=== PATIENT | female | born 1940 | race Caucasian/White ===

== ENCOUNTER 2017-07-15 21:49 | Inpatient (IN) | payer OTHER, BC ==
[~2017-07-15] VITALS: Ht 157.5 cm; Wt 83.8 kg
[~2017-07-15 21:49] MED LIST: ARTHROTEC 751 TABLET PO; ASPIRIN81 M2 PO; BENADRYL25 MG PO; CIPRO250 MG PO; CIPRO500 MG PO; FEOSOL325 MG PO; IRON325 M1 PO; LIPITOR20 MG PO; OXYCODONE HCL5 MG PO; PAXIL30 MG PO; SENNA-TIME S T1 EACH PO; TYLENOL REGULA325 MG PO; ULTRAM50 MG PO; VALIUM2 MG PO; VITAMIN C1000 MG PO; WELLBUTRIN75 MG PO; XARELTO10 MG PO
[2017-07-16 05:51] VITALS: BP 174/76
[2017-07-16 11:16] VITALS: BP 139/76
[2017-07-16 15:47] VITALS: BP 160/74
[2017-07-16 19:52] VITALS: BP 133/66
[2017-07-17 00:26] VITALS: BP 129/60
[2017-07-17 04:16] VITALS: BP 111/49
[2017-07-17 08:12] VITALS: BP 120/59
[2017-07-17 12:06] VITALS: BP 139/65
[2017-07-17 16:17] VITALS: BP 144/65
[2017-07-17 17:16] LABS: ANION GAP 9 MEQ/L (2-14); CHLORIDE 104 MEQ/L (99-109); POTASSIUM 3.8 MEQ/L (3.7-5.4); SAMPLE HEMOLYSIS CHECK 0; SAMPLE ICTERIC CHECK 0; SAMPLE LIPEMIA CHECK 0; SODIUM 139 MEQ/L (136-147)
[2017-07-17 17:21] LABS: GFR ESTIMATE (CALCULATED) > 59 mL/min/; GLUCOSE 103 mg/dL (70-99); UREA NITROGEN (BUN) 11 mg/dL (9-23)
[2017-07-17 18:43] VITALS: BP 139/70
[2017-07-18] VITALS (10 sets, daily range): BP systolic 84–127; BP diastolic 42–72
[2017-07-18 05:18] LABS: EOSINOPHIL COUNT 0.1 K/uL (0-0.3); IMMATURE GRANULOCYTE (%) 0.5 % (0.0-0.7); INSTRUMENT ABS NEUTROPHIL CT 5.2 K/uL; LYMPHOCYTE COUNT 0.9 K/uL (1.0-2.8); MCH 31.6 PG (29.0-34.0); MCHC 33.9 G/DL (30.0-36.0); MCV 93.2 FL (83-99); MEAN PLAT.VOLUME 8.4 uM^3 (9.5-12.4); MONOCYTE (%) 5.5 % (3-12); MONOCYTE COUNT 0.4 K/uL (0-0.8); NEUTROPHIL (%) 78.8 % (45-76); NEUTROPHIL COUNT 5.2 K/uL (1.8-6.4); PLATELET COUNT 171 K/uL (156-360); RBC DIS.WIDTH-CV 12.4 % (11.8-14.6); RBC DIS.WIDTH-SD 42.8 % (39-53); RED BLOOD COUNT 3.54 M/uL (3.80-5.20); WHITE BLOOD COUNT 6.6 K/uL (4.1-10.2)
[2017-07-18 05:43] LABS: ANION GAP 10 MEQ/L (2-14); CHLORIDE 104 MEQ/L (99-109); GFR ESTIMATE (CALCULATED) > 59 mL/min/; GLUCOSE 113 mg/dL (70-99); POTASSIUM 3.6 MEQ/L (3.7-5.4); SAMPLE HEMOLYSIS CHECK 0; SAMPLE ICTERIC CHECK 0; SAMPLE LIPEMIA CHECK 0; SODIUM 140 MEQ/L (136-147); UREA NITROGEN (BUN) 8 mg/dL (9-23)
[2017-07-18 09:23] LABS: POINT-OF-CARE METER ID UU13113712
[2017-07-18 11:38] LABS: METH RESISTANT S AUREUS PCR NEGATIVE (NEGATIVE); PROBE CHECK PASS; SPECIMEN PROCESSING CONTROL PASS
[2017-07-19 05:23] LABS: MCH 31.2 PG (29.0-34.0); MCHC 32.9 G/DL (30.0-36.0); MCV 94.9 FL (83-99); MEAN PLAT.VOLUME 8.5 uM^3 (9.5-12.4); PLATELET COUNT 171 K/uL (156-360); RBC DIS.WIDTH-CV 12.7 % (11.8-14.6); RBC DIS.WIDTH-SD 44.2 % (39-53); RED BLOOD COUNT 2.95 M/uL (3.80-5.20); WHITE BLOOD COUNT 6.3 K/uL (4.1-10.2)
[2017-07-19 05:46] LABS: ANION GAP 7 MEQ/L (2-14); CHLORIDE 110 MEQ/L (99-109); GFR ESTIMATE (CALCULATED) > 59 mL/min/; GLUCOSE 118 mg/dL (70-99); POTASSIUM 3.9 MEQ/L (3.7-5.4); SAMPLE HEMOLYSIS CHECK 0; SAMPLE ICTERIC CHECK 0; SAMPLE LIPEMIA CHECK 0; SODIUM 140 MEQ/L (136-147); UREA NITROGEN (BUN) 10 mg/dL (9-23)
[2017-07-19 08:19] VITALS: BP 127/68
[2017-07-19 11:46] VITALS: BP 130/77
[2017-07-19 16:05] VITALS: BP 132/72
[2017-07-19 16:43] LABS: ADD MIUA? NO; BILIRUBIN NEGATIVE; BLOOD NEGATIVE; COLOR YELLOW ((YELLOW)); GLUCOSE (STRIP) NEGATIVE; KETONES NEGATIVE; LEUKOCYTES NEGATIVE; NITRITE NEGATIVE; PROTEIN (STRIP) NEGATIVE; UCUL ADDED? NO; UROBILINOGEN 0.2 MG/DL (0.2-1.0)
[2017-07-19 20:36] VITALS: BP 144/81
[2017-07-20 00:36] VITALS: BP 153/67
[2017-07-20 07:33] VITALS: BP 139/67
[2017-07-20] MEDS ORDERED: QUETIAPINE FUMA25 MG PO (07:58)
[2017-07-20] MEDS ORDERED: ELIQUIS2.5 MG PO (07:58)
[2017-07-20] MEDS ORDERED: ONDANSETRON ODT4 MG PO (08:00)
[2017-07-20] MEDS ORDERED: BISAC-EVAC10 MG PR (08:00)
[2017-07-20] MEDS ORDERED: DOCUSATE SODIU100 MG PO (08:00)
[2017-07-20] MEDS ORDERED: SENNA PLUS TAB1 EACH PO (08:00)
[2017-07-20 11:21] VITALS: BP 119/55
[2017-07-20 16:00] VITALS: BP 142/72
[2017-07-20 23:39] VITALS: BP 124/58
[2017-07-21 08:21] VITALS: BP 137/86
[2017-07-21 09:39] LABS: EOSINOPHIL (%) 4.5 % (0-5); EOSINOPHIL COUNT 0.3 K/uL (0-0.3); HEMATOCRIT 30.3 % (36.0-46.0); IMMATURE GRANULOCYTE (%) 0.7 % (0.0-0.7); INSTRUMENT ABS NEUTROPHIL CT 3.7 K/uL; LYMPHOCYTE COUNT 1.3 K/uL (1.0-2.8); MCH 30.7 PG (29.0-34.0); MCHC 32.3 G/DL (30.0-36.0); MEAN PLAT.VOLUME 8.3 uM^3 (9.5-12.4); MONOCYTE (%) 6.1 % (3-12); MONOCYTE COUNT 0.4 K/uL (0-0.8); NEUTROPHIL (%) 65.3 % (45-76); NEUTROPHIL COUNT 3.7 K/uL (1.8-6.4); RBC DIS.WIDTH-CV 12.6 % (11.8-14.6); RBC DIS.WIDTH-SD 43.6 % (39-53); RED BLOOD COUNT 3.19 M/uL (3.80-5.20); WHITE BLOOD COUNT 5.7 K/uL (4.1-10.2)
[2017-07-21 09:44] LABS: PLATELET COUNT 255 K/uL (156-360)
[2017-07-21 15:05] VITALS: BP 154/71
[2017-07-21 23:26] VITALS: BP 125/60
[2017-07-22 06:57] LABS: HEMATOCRIT 29.2 % (36.0-46.0); MCV 93.9 FL (83-99)
[2017-07-22 07:54] VITALS: BP 118/70
[2017-07-22 15:19] VITALS: BP 141/77
[2017-07-23 00:09] VITALS: BP 135/58
[2017-07-23 08:12] VITALS: BP 168/83
== END 2017-07-23 15:05 | DRG 469 ==
LOC: ENRESERV 21:49 → 3WEST 07-16 05:10 → 2SOUTH 07-16 05:10 → 4WEST 07-16 05:10 → 2SOUTH 07-16 08:36 → 3WEST 07-16 10:50 → 2SOUTH 07-16 11:01 → ENRESERV 07-18 07:42 → CANRESERV 07-18 07:42 → 4WEST 07-18 09:30 → ENRESERV 07-18 21:05 → 3EAST 07-18 23:27
PROVIDERS: Family Medicine; Internal Medicine; Orthopaedic Surgery; Student in an Organized Health Care Education/Training Program
PROC: 0SRB0J9 Replacement of Left Hip Joint with Synthetic Substitute, Cemented, Open Approach (ICD-10-PCS; principal; 2017-07-16)
DX: M16.12 Unilateral primary osteoarthritis, left hip (principal); G93.40 Encephalopathy, unspecified; I95.9 Hypotension, unspecified; R45.1 Restlessness and agitation; M79.7 Fibromyalgia; E78.00 Pure hypercholesterolemia, unspecified; I27.20 Pulmonary hypertension, unspecified; D64.9 Anemia, unspecified; F03.90 Unspecified dementia, unspecified severity, without behavioral disturbance, psychotic disturbance, mood disturbance, and anxiety; Z96.652 Presence of left artificial knee joint; E66.9 Obesity, unspecified; Z68.33 Body mass index [BMI] 33.0-33.9, adult; Z83.3 Family history of diabetes mellitus
CPT/HCPCS: 70450; 71010; 71275; 80048; 81003; 82040; 82272; 82948; 83605; 83735; 85014; 85018; 85025; 85027; 85379; 87641; 93005; 93306; 97530 GO; 97530 GP; C1713; J0131; J0690; J1170; J1630; J1885; J2250; J2405; J3010; J7030; J7050; J7120; S0020